=== PATIENT | male | born 1955 | race Caucasian/White ===

== ENCOUNTER → 2016-07-23 | Outpatient (REF) | payer OTHER | LOC: M LAB REF 17:12 | PROVIDERS: ATTEND Family Medicine | DX: Z01.89 Encounter for other specified special examinations (principal) ==

== ENCOUNTER → 2018-06-29 | Outpatient (CLI) | payer OTHER ==
[2018-06-29 12:55] LABS: CHOLESTEROL RISK RATIO 3.056 (<5)
== END ==
LOC: M LAB 11:21
DX: G62.9 Polyneuropathy, unspecified (principal)

== ENCOUNTER → 2019-01-20 | Outpatient (CLI) | payer OTHER ==
[2019-01-20 11:28] LABS: BLOOD UREA NITROGEN 11 MG/DL (7-18); CALCIUM LEVEL 9.3 MG/DL (8.8-10.2); CARBON DIOXIDE LEVEL 32 MEQ/L (21-32); CHLORIDE LEVEL 105 MEQ/L (98-107); CREATININE FOR GFR 0.86 MG/DL (0.70-1.30); GLOMERULAR FILTRATION RATE > 60.0 (>49); GLUCOSE, FASTING 83 MG/DL (70-100); POTASSIUM SERUM 4.3 MEQ/L (3.5-5.1); SODIUM LEVEL 140 MEQ/L (136-145)
--- NOTE | 2019-01-20 21:30 | ECGEPIP ---
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 Electronically Signed on 01-20-2019 21:30:12 EST by Enrrique Eagle
== END ==
LOC: M LAB 10:10
PROVIDERS: ATTEND Orthopaedic Surgery
DX: I10 Essential (primary) hypertension (principal); Z79.899 Other long term (current) drug therapy

== ENCOUNTER → 2019-05-12 | Outpatient (CLI) | payer OTHER | LOC: M LABSMTC 12:53 | PROVIDERS: ATTEND Family Medicine | DX: Z11.59 Encounter for screening for other viral diseases (principal); Z20.828 Contact with and (suspected) exposure to other viral communicable diseases ==

== ENCOUNTER → 2019-10-06 | Outpatient (CLI) | payer OTHER ==
[~2019-10-06] MED LIST: GABA600T4 PO; HYDR-3713 PO; LISI-538 PO; LISI10TA15 PO; TAMS1CAP17 PO; ZOLP10TA2 PO
== END ==
LOC: M LABSMTC 09:51
PROVIDERS: ATTEND Anesthesiology
DX: Z03.818 Encounter for observation for suspected exposure to other biological agents ruled out (principal); Z11.59 Encounter for screening for other viral diseases

== ENCOUNTER → 2019-10-08 | Outpatient (CLI) | payer OTHER | LOC: M LABSMTC 13:43 | PROVIDERS: ATTEND Anesthesiology | DX: Z11.59 Encounter for screening for other viral diseases (principal) ==

== ENCOUNTER 2019-10-11 07:14 | Day surgery (SDC) | payer OTHER ==
[~2019-10-11] VITALS: Ht 185.4 cm; Wt 83.8 kg
[~2019-10-11 07:14] MED LIST changes: -HYDR-3713 PO; +LIDOCAINE 2% 100MG/5ML SDV (FOR ANES.) As Ordered ONE; +propofoL 200 MG/20 ML VIAL As Ordered ONE
[2019-10-11] MEDS ORDERED: NS 1,000 ML IV ONE (08:00)
[2019-10-11 09:05] VITALS: BP 106/58
--- NOTE | 2019-10-20 11:36 | ROOR ---
Patient Name: Hamilton Ramirez Procedure Date: 10/11/2019 7:32 AM Date of : 1955 Age: 63 Room: [facility] Gender: Male Note Status: Finalized Procedure: Total Colonoscopy to Cecum Indications: Colon cancer screening in patient at increased risk: Family history of colorectal cancer in multiple 2nd degree relatives Providers: Panfilo Pastrana MD Referring MD: Wu Loco MD Requesting Provider: Medicines: Monitored Anesthesia Care Complications: No immediate complications. Procedure: Pre-Anesthesia Assessment: - The heart rate, respiratory rate, oxygen saturations, blood pressure, adequacy of pulmonary ventilation, and response to care were monitored throughout the procedure. The Colonoscope was introduced through the anus and advanced to the cecum, identified by appendiceal orifice and ileocecal valve. The colonoscopy was performed without difficulty. The patient tolerated the procedure well. The quality of the bowel preparation was good. Findings: The perianal and digital rectal examinations were normal. Non-bleeding internal hemorrhoids were found during retroflexion. The hemorrhoids were moderate, medium-sized and Grade II (internal hemorrhoids that prolapse but reduce spontaneously). Scattered small-mouthed diverticula were found in the recto-sigmoid colon, sigmoid colon and descending colon. The exam was otherwise without abnormality on direct and retroflexion views. Impression: - Non-bleeding internal hemorrhoids. - Diverticulosis in the recto-sigmoid colon, in the sigmoid colon and in the descending colon. - The examination was otherwise normal on direct and retroflexion views. - No specimens collected. - The exam was otherwise normal to the cecum. Recommendation: - Patient has a contact number available for emergencies. The signs and symptoms of potential delayed complications were discussed with the patient. Return to normal activities tomorrow. Written discharge instructions were provided to the patient. - High fiber diet. - Discharge patient to home. - Continue present medications. - Repeat colonoscopy in 5 years for screening purposes. - Return to referring physician. - The findings and recommendations were discussed with the patient. Panfilo Pastrana MD Panfilo Pastrana MD 10/11/2019 8:44:08 AM Number of Addenda: 0 Note Initiated On: 10/11/2019 7:32 AM Estimated Blood Loss: Estimated blood loss: none.
== END 2019-10-11 09:14 | disposition home or self-care (01) ==
LOC: M OPP 07:14
PROVIDERS: ATTEND Internal Medicine Gastroenterology
DX: K64.1 Second degree hemorrhoids (principal); K57.30 Diverticulosis of large intestine without perforation or abscess without bleeding; K62.5 Hemorrhage of anus and rectum; Z80.0 Family history of malignant neoplasm of digestive organs; I10 Essential (primary) hypertension; Z79.899 Other long term (current) drug therapy

== ENCOUNTER 2019-10-13 08:45 | Day surgery (SDC) | payer OTHER ==
[~2019-10-13] VITALS: Ht 185.4 cm; Wt 86.2 kg
[~2019-10-13 08:45] MED LIST changes: +BUPIVACAINE HCL 0.5% 30 ML VIAL As Ordered ONE; +LIDOCAINE 1% SDV 30ML VIAL As Ordered ONE; +LR 1,000 ML IV ONE; +MIDAZOLAM INJ 2MG/2ML VIAL (J2250 PER 1MG) As Ordered ONE; +ONDANSETRON 4MG/2ML VIAL As Ordered ONE; +dexameTHASONE 4 MG/ML 1ML VIAL (J1100 PER 1MG) As Ordered ONE; +fentaNYL 100 MCG/2 ML INJECTION (J3010) As Ordered ONE
[2019-10-13] MEDS ORDERED: ceFAZolin SOD 2 GM in IV 1 EA IV ONE (09:00)
[2019-10-13] MEDS ORDERED: KETOROLAC 60MG 2ML VIAL As Ordered ONE (11:50)
[2019-10-13] MEDS ORDERED: HYDR-3713 PO (12:01)
[2019-10-13 12:33] VITALS: BP 114/62
--- NOTE | 2019-11-04 13:03 | RO ---
DATE OF SURGERY: 10/13/2019 SURGEON: Doron Valera DPM BIAS MACHINE OPERATOR: None. PREOPERATIVE DIAGNOSIS: Right second hammertoe. POSTOPERATIVE DIAGNOSIS: Right second hammertoe. PROCEDURE: Right second hammertoe correction. ANESTHESIA: Monitored anesthesia care. PREOPERATIVE INJECTION: 8 cc of a one-to-one mixture of 1% lidocaine plain and 0.5% Marcaine plain. ESTIMATED BLOOD LOSS: Minimal. MATERIALS: Wilfredo Smart Toe, 3-0 Vicryl, 4-0 nylon. INJECTABLES: None. COMPLICATIONS: None. CONDITION: Stable. INDICATIONS: Hamilton Ramirez is a 63-year-old male who presents to [facility] was complaints of painful second hammertoe. He presents today for surgical correction. The patient's side and site were identified and marked in the pre-operative holding area. Consent was reviewed and obtained. All risks, complications, and alternatives to the procedure were explained to the patient in detail and all questions were answered. PROCEDURE: The patient was brought to the operating room and placed on the operating room table in the supine position. Monitored anesthesia care was delivered by the anesthesia team. Preoperative injection of 8 mL of a one-to-one mixture of 1% lidocaine plain and 0.5% Marcaine plain were injected into the right foot. The right foot was prepped and draped in normal sterile fashion. A tourniquet was applied to the right ankle and inflated at 250 mmHg. A dorsal incision was made over the second toe over the proximal interphalangeal joint. Dissection was carried out until the extensor tendon was identified. The extensor tendon was transected at the proximal interphalangeal joint level. The joint was accessed and collateral ligaments were released exposing the proximal phalanx head. The cartilage was removed with the sagittal saw from both the proximal phalanx head and the base of the middle phalanx. Following this, the broaches were applied from the Smart Toe set and the Smart Toe was inserted according to bandoleer straightener stamper protocol. Following this, the overlapping extensor tendon was excised and tendon repair was performed with 3-0 Vicryl and skin closure with 4-0 nylon. Sterile dressings were applied. The tourniquet was deflated. The patient was brought to the PACU with vital signs stable and neurovascular status intact. He will be partial weightbearing as tolerated. He will follow up in the office in two days. ZELDA
== END 2019-10-13 13:24 | disposition home or self-care (01) ==
LOC: M SDC 08:45
PROVIDERS: ATTEND Podiatrist Foot & Ankle Surgery
DX: M20.41 Other hammer toe(s) (acquired), right foot (principal); I10 Essential (primary) hypertension; Z79.899 Other long term (current) drug therapy
CPT/HCPCS: 28285; 88304; C1713; J0690; J1100; J1885; J2250; J2405; J3010

== ENCOUNTER 2020-01-13 11:33 | Emergency (ER) | payer OTHER ==
[~2020-01-13] VITALS: Ht 185.4 cm; Wt 91.4 kg
[~2020-01-13 11:33] MED LIST changes: -BUPIVACAINE HCL 0.5% 30 ML VIAL As Ordered ONE; +HYDR-3713 PO; -LIDOCAINE 1% SDV 30ML VIAL As Ordered ONE; -LIDOCAINE 2% 100MG/5ML SDV (FOR ANES.) As Ordered ONE; -LR 1,000 ML IV ONE; -MIDAZOLAM INJ 2MG/2ML VIAL (J2250 PER 1MG) As Ordered ONE; -ONDANSETRON 4MG/2ML VIAL As Ordered ONE; -dexameTHASONE 4 MG/ML 1ML VIAL (J1100 PER 1MG) As Ordered ONE; -fentaNYL 100 MCG/2 ML INJECTION (J3010) As Ordered ONE; -propofoL 200 MG/20 ML VIAL As Ordered ONE
[2020-01-13] MEDS ORDERED: ACET1TAB16 PO (11:47)
[2020-01-13] MEDS ORDERED: TRAZ-189 (11:47)
[2020-01-13] MEDS ORDERED: IBUP-1022 PO (11:47)
[2020-01-13] MEDS ORDERED: TRAM50TA2 PO (11:47)
[2020-01-13 12:21] LABS: BASO # 0.1 10^3/uL (0.0-0.2); BASO % 0.9 % (0.0-1.0); EOS # 0.1 10^3/uL (0.0-0.5); HEMATOCRIT 48.1 % (42.0-52.0); HEMOGLOBIN 15.1 g/dl (13.5-17.5); LYMPH % 14.5 % (24.0-44.0); MEAN CORPUSCULAR HEMOGLOBIN 27.1 pg (27.0-33.0); MEAN CORPUSCULAR HGB CONC 31.4 g/dl (32.0-36.5); MEAN CORPUSCULAR VOLUME 86.4 fl (80.0-96.0); MONO # 0.6 10^3/uL (0.0-0.8); MONO % 9.5 % (0.0-5.0); NEUTROPHILS # 4.8 10^3/uL (1.5-8.5); NEUTROPHILS % 72.6 % (36.0-66.0); PLATELET COUNT, AUTOMATED 276 10^3/uL (150-450); RED BLOOD COUNT 5.57 10^6/uL (4.30-6.10); WHITE BLOOD COUNT 6.6 10^3/uL (4.0-10.0)
[2020-01-13 13:01] LABS: BLOOD UREA NITROGEN 9 MG/DL (7-18); CALCIUM LEVEL 9.2 MG/DL (8.8-10.2); CARBON DIOXIDE LEVEL 31 MEQ/L (21-32); CHLORIDE LEVEL 102 MEQ/L (98-107); CREATININE FOR GFR 0.86 MG/DL (0.70-1.30); GLOMERULAR FILTRATION RATE > 60.0 (>49); GLUCOSE, FASTING 98 MG/DL (70-100); POTASSIUM SERUM 3.9 MEQ/L (3.5-5.1); SODIUM LEVEL 137 MEQ/L (136-145)
[2020-01-13 13:02] LABS: ALBUMIN 4.1 GM/DL (3.2-5.2); ALT/SGPT 31 U/L (12-78); BILIRUBIN,DIRECT 0.1 MG/DL (0.0-0.2); BILIRUBIN,TOTAL 0.3 MG/DL (0.2-1.0); LIPASE 74 U/L (73-393)
[2020-01-13] MEDS ORDERED: ISOVUE-370 76% 100ML VIAL As Ordered ONE (13:15)
[2020-01-13] MEDS ORDERED: KETOROLAC 30 MG/ML 1ML VIAL IV ONE (13:15)
--- NOTE | 2020-01-13 13:42 | REP ---
INDICATION: LLQ pain into back, concern divertic. COMPARISON: Comparison CT studies are reviewed from October 05, 2019 and August 18, 2012.. TECHNIQUE: Helical scanning was acquired and 4 mm axial images are re-formatted. Coronal and sagittal MPR images were generated and reviewed. The contrast enhancement dose is 100 mL of intravenous Isovue 370. FINDINGS: Preliminary digital car dispatcher radiograph is unremarkable. There is moderate stool throughout the colon. The lung bases are essentially clear on axial CT images. No pleural effusion or upper abdominal ascites is seen. There are multiple small cysts in the liver right and left lobe. The largest is a peripheral cyst in the right lobe measuring 2.4 cm in diameter. No hepatic mass lesion is seen. There is a tiny accessory splenule in the left upper quadrant. The spleen is otherwise unremarkable. No abnormality is noted in the pancreas. The gallbladder shows no evidence of stone by CT. No biliary ductal dilation is observed. Normal adrenal glands are seen bilaterally. The kidneys enhance symmetrically and appear morphologically intact. No hydronephrosis or intrarenal calculus is observed. No retroperitoneal mass or adenopathy is seen. A normal appendix is seen just beneath the tip of the liver retrocecal. There is 1 radiopaque diverticulum in the ascending colon. Otherwise, there does not appear to be diverticulosis. There is no CT evidence of diverticulitis. There is moderate stool throughout the distal colon and to a lesser extent the proximal colon. Prostate is mildly enlarged unchanged. Seminal vesicles and urinary bladder are unremarkable. No pelvic mass or adenopathy is seen. No abdominal wall defect is observed. Bone window settings demonstrate degenerative spurring of the SI joints, right greater than left. There is mild osteoarthritis of the hips and degenerative spondylosis changes are seen in the lumbar spine. IMPRESSION: Moderate colonic stool. Mild proximal colonic diverticulosis. No CT evidence of diverticulitis. Normal appendix. No acute abdominal or pelvic abnormality seen. Somewhat enlarged prostate. <Electronically signed by Fady Collins > 01/13/20 [id number]
[2020-01-13 14:09] VITALS: BP 160/80
== END 2020-01-13 14:30 | disposition home or self-care (01) ==
LOC: M ED 11:33
DX: K59.00 Constipation, unspecified (principal); K57.90 Diverticulosis of intestine, part unspecified, without perforation or abscess without bleeding; I10 Essential (primary) hypertension; K21.9 Gastro-esophageal reflux disease without esophagitis; Z79.899 Other long term (current) drug therapy
CPT/HCPCS: 36415; 74177; 80048; 80076; 81001; 83690; 85025; 96374; 99284; J1885; Q9967

== ENCOUNTER 2020-02-02 11:04 | Emergency (ER) | payer OTHER ==
[~2020-02-02] VITALS: Ht 185.4 cm; Wt 85.9 kg
[~2020-02-02 11:04] MED LIST changes: +ACET1TAB16 PO; +IBUP-1022 PO; +TRAM50TA2 PO; +TRAZ-189
[2020-02-02] MEDS ORDERED: AMOX875T2 (11:37)
[2020-02-02 12:47] LABS: APPEARANCE, URINE CLEAR (CLEAR); BACTERIA, URINE AUTO NEGATIVE (NEGATIVE); BILIRUBIN, URINE AUTO NEGATIVE (NEGATIVE); BLOOD, URINE BLOOD NEGATIVE (NEGATIVE); COLOR, URINE YELLOW (YELLOW); GLUCOSE, URINE (UA) AUTO NEGATIVE (NEGATIVE); KETONE, URINE AUTO NEGATIVE (NEGATIVE); LEUKOCYTE ESTERASE, URINE AUTO NEGATIVE (NEGATIVE); NITRITE, URINE AUTO NEGATIVE (NEGATIVE); PROTEIN, URINE AUTO NEGATIVE (NEGATIVE); RBC, URINE AUTO 1 /HPF (0-3); SPECIFIC GRAVITY URINE AUTO 1.003 (1.002-1.035); SQUAMOUS EPITHELIAL CELL UR AU 0 /HPF (0-6); UROBILINOGEN, URINE AUTO 0.2 mg/dL (0.0-2.0); WBC, URINE AUTO 0 /HPF (0-3)
[2020-02-02 12:50] LABS: BASO # 0.1 10^3/uL (0.0-0.2); BASO % 1.4 % (0.0-1.0); EOS # 0.1 10^3/uL (0.0-0.5); HEMATOCRIT 45.2 % (42.0-52.0); HEMOGLOBIN 14.8 g/dl (13.5-17.5); LYMPH # 1.2 10^3/uL (1.5-5.0); LYMPH % 23.7 % (24.0-44.0); MEAN CORPUSCULAR HEMOGLOBIN 27.7 pg (27.0-33.0); MEAN CORPUSCULAR HGB CONC 32.7 g/dl (32.0-36.5); MEAN CORPUSCULAR VOLUME 84.5 fl (80.0-96.0); MONO # 0.6 10^3/uL (0.0-0.8); MONO % 11.8 % (0.0-5.0); NEUTROPHILS # 3.1 10^3/uL (1.5-8.5); NEUTROPHILS % 60.7 % (36.0-66.0); PLATELET COUNT, AUTOMATED 332 10^3/uL (150-450); RED BLOOD COUNT 5.35 10^6/uL (4.30-6.10); WHITE BLOOD COUNT 5.1 10^3/uL (4.0-10.0)
[2020-02-02 13:12] LABS: ALBUMIN 3.7 GM/DL (3.2-5.2); ALT/SGPT 24 U/L (12-78); BILIRUBIN,DIRECT 0.1 MG/DL (0.0-0.2); BILIRUBIN,TOTAL 0.4 MG/DL (0.2-1.0); BLOOD UREA NITROGEN 8 MG/DL (7-18); CALCIUM LEVEL 9.3 MG/DL (8.8-10.2); CARBON DIOXIDE LEVEL 31 MEQ/L (21-32); CHLORIDE LEVEL 101 MEQ/L (98-107); CREATININE FOR GFR 0.81 MG/DL (0.70-1.30); GLOMERULAR FILTRATION RATE > 60.0 (>49); GLUCOSE, FASTING 83 MG/DL (70-100); POTASSIUM SERUM 3.9 MEQ/L (3.5-5.1); SODIUM LEVEL 138 MEQ/L (136-145); TOTAL PROTEIN 7.1 GM/DL (6.4-8.2)
[2020-02-02 13:37] LABS: ERYTHROCYTE SEDIMENTATION RATE 12 mm/hr (0-20)
[2020-02-02] MEDS ORDERED: KETO10TAB PO (13:48)
[2020-02-02 13:58] VITALS: BP 136/86
== END 2020-02-02 13:59 | disposition home or self-care (01) ==
LOC: M ED 11:04
DX: M54.15 Radiculopathy, thoracolumbar region (principal); R10.9 Unspecified abdominal pain; Z79.899 Other long term (current) drug therapy

== ENCOUNTER → 2020-02-29 | Outpatient (REF) | payer OTHER ==
[~2020-02-29] MED LIST changes: +AMOX875T2; +KETO10TAB PO; -LISI-538 PO; +LISI20TA33 PO
[2020-03-02 16:14] LABS: Lyme Disease IgG/IgM Antibodie <0.91 ISR (0.00-0.90); Lyme Disease IgM Ab Quantitati <0.80 index (0.00-0.79)
== END ==
LOC: M LAB REF 12:13
PROVIDERS: ATTEND Family Medicine
DX: Z11.9 Encounter for screening for infectious and parasitic diseases, unspecified (principal); W57.XXXA Bitten or stung by nonvenomous insect and other nonvenomous arthropods, initial encounter

== ENCOUNTER → 2020-08-23 | Outpatient (REF) | payer OTHER ==
[2020-08-23 13:34] LABS: FOLATE > 24.0 NG/ML; VITAMIN B12 LEVEL 1058 PG/ML
== END ==
LOC: M LAB REF 11:47
PROVIDERS: ATTEND Family Medicine
DX: G60.9 Hereditary and idiopathic neuropathy, unspecified (principal)

== ENCOUNTER → 2022-11-01 | Outpatient (REF) | payer OTHER ==
[~2022-11-01] MED LIST changes: -ACET1TAB16 PO; +ACET300T48 PO; -LISI10TA15 PO; +LISI10TA24 PO
[2022-11-01 17:19] LABS: PERCENT SATURATION 31.3 % (19.7-50.0)
[2022-11-01 17:22] LABS: FERRITIN 25.2 NG/ML (10.5-307.3)
== END ==
LOC: M LAB REF 16:17
PROVIDERS: ATTEND Family Medicine
DX: D50.9 Iron deficiency anemia, unspecified (principal)

== ENCOUNTER 2024-03-29 12:44 | Day surgery (SDC) | payer MEDICARE, OTHER ==
[~2024-03-29] VITALS: Ht 185.4 cm; Wt 90.6 kg
[~2024-03-29 12:44] MED LIST changes: +GABA-1490 PO; -GABA600T4 PO
[2024-03-29] MEDS ORDERED: fentaNYL 100 MCG/2 ML INJECTION As Ordered ONE (13:18)
[2024-03-29] MEDS ORDERED: propofoL 200 MG/20 ML VIAL As Ordered ONE (13:28)
[2024-03-29] MEDS ORDERED: LIDOCAINE 2% 100MG/5ML SDV (FOR ANES.) As Ordered ONE (13:28)
[2024-03-29 14:13] VITALS: TEMP 97.3
[2024-03-29 14:32] VITALS: BP 108/54; O2SAT 95
== END 2024-03-29 14:44 | disposition home or self-care (01) ==
LOC: M OPP 12:44
PROVIDERS: ATTEND Internal Medicine Gastroenterology
DX: Z12.11 Encounter for screening for malignant neoplasm of colon (principal); K57.30 Diverticulosis of large intestine without perforation or abscess without bleeding; K64.0 First degree hemorrhoids; K44.9 Diaphragmatic hernia without obstruction or gangrene; K29.70 Gastritis, unspecified, without bleeding; R12 Heartburn; Z79.899 Other long term (current) drug therapy
CPT/HCPCS: 43239; 88305; G0121; J3010

== ENCOUNTER → 2024-05-12 | Outpatient (CLI) | payer MEDICARE, OTHER | LOC: M WUC 14:42 | PROVIDERS: ATTEND Physician Assistant Medical | DX: M79.671 Pain in right foot (principal) ==